=== PATIENT | female | born 1970 | race Caucasian/White ===

== ENCOUNTER 2019-05-18 09:06 | Inpatient (IN) | payer OTHER ==
[2019-05-18 11:16] VITALS: BMI 28.7
--- NOTE | 2019-05-18 11:25 | HP ---
CIWA Score Nausea/Vomitin-No Nausea/No Vomiting Muscle Tremors: 4-Moderate,w/Arms Extend Anxiety: 3 Agitation: 4-Moderately Restless Paroxysmal Sweats: No Perspiration Orientation: 2-Disoriented Date<2 days Tacttile Disturbances: 0-None Auditory Disturbances: 2-Mild Harshness/Frighten Visual Disturbances: 2-Mild Sensitivity Headache: 0-None Present CIWA-Ar Total Score: 17 - Admission Criteria OASAS Guidelines: Admission for Medically Managed Detox: Requires at least one of the followin. CIWA greater than 12 2. Seizures within the past 24 hours 3. Delirium tremens within the past 24 hours 4. Hallucinations within the past 24 hours 5. Acute intervention needed for co occurring medical disorder 6. Acute intervention needed for co occurring psychiatric disorder 7. Severe withdrawal that cannot be handled at a lower level of care (continued vomiting, continued diarrhea, abnormal vital signs) requiring intravenous medication and/or fluids 8. Admitting History and Physical - Past Medical History ...LMP: 10/14/15 - Smoking History Smoking history: Former smoker Have you smoked in the past 12 months: No If you are a former smoker, when did you quit?: 5 YRS. AGO - Alcohol/Substance Use Hx Alcohol Use: Yes Admission [facility] Allergies/Adverse Reactions: Allergies Allergy/AdvReac Type Severity Reaction Status Date / Time No Known Allergies Allergy Verified 05/18/19 10:51 History of Present Illness: pt here requesting detox from etoh use reports 1 liter and 6-pk beer and 1 bottle of wine /day , reports h/o pancreatitis , latest use today . PMHX : DM I , HIV non- compliant w/ meds " I have boxes and boxes of meds in my house , I pick them up but I never take them " , HTN , PSHx : cholecystitis , left [facility] 3 yrs ago [facility] 2/2 fall/ frx adult children in [place] finances habit through selling benefit card per pharmacy of record, no rx for Lisinopril Exam Limitations: Clinical Condition, Intoxication - Ebola screening Have you traveled outside of the country in the last 21 days: No (NN) Have you had contact with anyone from an Ebola affected area: No - Review of Systems Constitutional: Loss of Appetite EENT: reports: Other (glasses) Respiratory: reports: No Symptoms reported Cardiac: reports: No Symptoms Reported GI: reports: Diarrhea, Poor Appetite : reports: No Symptoms Reported Musculoskeletal: reports: Joint Pain (left hip pain , went to [facility] 4 d. ago , given Naprosyn) Integumentary: reports: Bruising (s/p fall - right elbow) Neuro: reports: See HPI, Seizure, Tremors, Unsteady Gait Endocrine: reports: See HPI Psychiatric: reports: Agitated, Anxious, Disorientated Patient History - Patient Medical History Hx Anemia: Yes (NO SURE) Hx Asthma: No Hx Chronic Obstructive Pulmonary Disease (COPD): No Hx Cancer: No Hx Cardiac Disorders: No Hx Congestive Heart Failure: No Hx Hypertension: Yes Hx Hypercholesterolemia: No Hx Pacemaker: No HX Cerebrovascular Accident: No Hx Seizures: Yes (03/2015) Hx Dementia: No Hx Diabetes: Yes (VPS=920,SINCE 07/2014) Hx Gastrointestinal Disorders: No Hx Liver Disease: No Hx Genitourinary Disorders: No Hx Sexually Transmitted Disorders: No Hx Renal Disease (ESRD): No Hx Thyroid Disease: No Hx Human Immunodeficiency Virus (HIV): Yes (COMPLERA NON-COMPLIANT X 4 MONTHS) Hx Hepatitis C: No Hx Depression: Yes Hx Suicide Attempt: Yes (LAY ON TRAIN TRACK WHILE DRUNK) Hx Bipolar Disorder: Yes Hx Schizophrenia: No - Patient Surgical History Past Surgical History: Yes Hx Cholecystectomy: Yes (JUNE 2015) Other Surgical History: gallbladder surgery , removed 3 stones 06/2015 Anesthesia Reaction: No - PPD History Date: 11/17/15 - Reproductive History Last Menstrual Period: 10/14/15 - Smoking Cessation Smoking history: Former smoker Have you smoked in the past 12 months: No If you are a former smoker, when did you quit?: 5 YRS. AGO Hx Chewing Tobacco Use: No Initiated information on smoking cessation: No - Substances abused Alcohol Substance route: Oral Frequency: Daily Amount used: 1 liter of vodka & 5 beers Age of first use: 8 Date of last use: 05/17/19 Admission Physical Exam BHS - Vital Signs Vital Signs: Vital Signs - 24 hr 05/18/19 11:02 Temperature 97.3 F L Pulse Rate 126 H Respiratory 20 Rate Blood Pressure 143/86 - Physical General Appearance: Yes: Disheveled, Intoxicated HEENTM: Yes: EOMI, Hearing grossly Normal, Normocephalic, Normal Voice Respiratory: Yes: Chest Non-Tender, Lungs Clear, Normal Breath Sounds, No Respiratory Distress, No Accessory Muscle Use Neck: Yes: No masses,lesions,Nodules, Trachea in good position Cardiology: Yes: Regular Rhythm, Regular Rate, S1, S2, Tachycardia Abdominal: Yes: Non Tender, Soft, Protuberent Musculoskeletal: Yes: full range of Motion Extremities: Yes: Normal Range of Motion, Non-Tender, Tremors Neurological: Yes: Alert, Motor Strength 5/5, Disoriented Integumentary: Yes: Warm, Other (bruising rigth elbow) - Diagnostic (1) Alcohol intoxication Current Visit: Yes Status: Acute Qualifiers: Complication of substance-induced condition: uncomplicated Qualified Code(s ): F10.920 - Alcohol use, unspecified with intoxication, uncomplicated Inpatient Rehab Admission - Rehab Decision to Admit Inpatient rehab admission?: No
[2019-05-18] MEDS ORDERED: METOPROLOL TARTRATE 25 MG TABLET (FP) PO ONE (11:40)
[2019-05-18] MEDS ORDERED: ACETAMINOPHEN 325 MG TABLET (FP) PO PRN ×2 (11:48)
[2019-05-18] MEDS ORDERED: IBUPROFEN 400 MG TABLET (FP) PO PRN (11:48)
[2019-05-18] MEDS ORDERED: hydrOXYzine PAMOATE 25 MG CAPSULE (FP) PO PRN (11:48)
[2019-05-18] MEDS ORDERED: MAGNESIUM CITRATE 300 ML BOTTLE PO PRN (11:48)
[2019-05-18] MEDS ORDERED: MELATONIN 5 MG TABLETS PO PRN (11:48)
[2019-05-18] MEDS ORDERED: MENTHOL/PHENOL 1 EACH UD MM PRN (11:48)
[2019-05-18] MEDS ORDERED: MAGNESIUM HYDROX 2400MG/30ML ORAL SUSPENSION 30 ML CUP PO PRN (11:48)
[2019-05-18] MEDS ORDERED: MAG HYDROX/AL HYDROX/SIMETH 30 ML UNIT-DOSE CUP PO PRN (11:48)
[2019-05-18] MEDS ORDERED: chlordiazePOXIDE HCL 25 MG CAPSULE PO PRN (11:48)
[2019-05-18] MEDS ORDERED: BISMUTH SUBSALICYLATE 524 MG/30 ML UD PO PRN (11:48)
[2019-05-18] MEDS: chlordiazePOXIDE HCL 25 MG CAPSULE PO SCH ×3 (13:38→22:30)
[2019-05-18] MEDS: INSULIN SLIDING SCALE (NOVOLOG) 1 VIAL SQ SCH ×2 (17:25→23:11)
[2019-05-18] MEDS: THIAMINE HCL 100 MG TABLET (FP) PO SCH (21:35)
[2019-05-18] MEDS: PATIENT'S OWN MEDICATION (NON-FORMULARY) (Insulin Glargine,Hum.Rec.Anlog [Basaglar Kwikpen SQ SCH (21:36)
[2019-05-19] MEDS: chlordiazePOXIDE HCL 25 MG CAPSULE PO SCH ×4 (06:47→22:01)
[2019-05-19] MEDS ORDERED: INSULIN SLIDING SCALE (NOVOLOG) 1 VIAL SQ ONE ×2 (06:51→09:51)
[2019-05-19] MEDS: INSULIN SLIDING SCALE (NOVOLOG) 1 VIAL SQ SCH ×4 (06:54→22:01)
[2019-05-19] MEDS: PRENATAL VITAMINS W/ FOLIC ACID TABLET (FP) PO SCH (10:22)
[2019-05-19 10:41] LABS: HEMATOCRIT 42.8 % (32.4-45.2); HEMOGLOBIN 14.3 GM/dL (10.7-15.3); MCH 31.2 pg (25.7-33.7); MCHC 33.4 g/dl (32.0-36.0); MEAN CELL VOLUME 93.5 fl (80-96); MEAN PLT VOLUME 9.6 fl (7.5-11.1); PLATELET COUNT 124 K/MM3 (134-434); RBC 4.58 M/mm3 (3.60-5.2); RDW 12.8 % (11.6-15.6); WHITE BLOOD COUNT 3.2 K/mm3 (4.0-10.0)
[2019-05-19 10:55] LABS: ALBUMIN 3.8 g/dl (3.4-5.0); BILIRUBIN,TOTAL 3.2 mg/dL (0.2-1); BLOOD UREA NITROGEN 12.8 mg/dL (7-18); CALCIUM 8.5 mg/dL (8.5-10.1); CREATININE 0.8 mg/dL (0.55-1.3); POTASSIUM 3.5 mmol/L (3.5-5.1); TOT PROT 8.1 g/dl (6.4-8.2)
--- NOTE | 2019-05-19 14:43 | PN ---
S CIWA - CIWA Score Nausea/Vomitin-No Nausea/No Vomiting Muscle Tremors: 3 Anxiety: 3 Agitation: 3 Paroxysmal Sweats: 3 Orientation: 0-Oriented Tacttile Disturbances: 0-None Auditory Disturbances: 0-None Visual Disturbances: 0-None Headache: 0-None Present CIWA-Ar Total Score: 12 BHS Progress Note (SOAP) Subjective: sweats interrupted sleep agitation body aches Objective: 05/19/19 14:42 Vital Signs Temperature 98.2 F 05/19/19 14:25 Pulse Rate 97 H 05/19/19 14:25 Respiratory Rate 18 05/19/19 14:25 Blood Pressure 153/95 05/19/19 14:25 O2 Sat by Pulse Oximetry (%) Laboratory Tests 05/18/19 05/18/19 05/18/19 12:24 16:27 21:10 WBC RBC Hgb Hct MCV MCH MCHC RDW Plt Count MPV Sodium Potassium Chloride Carbon Dioxide Anion Gap BUN Creatinine Est GFR (CKD-EPI)AfAm Est GFR (CKD-EPI)NonAf POC Glucometer [phone] Random Glucose Calcium Total Bilirubin AST ALT Alkaline Phosphatase Total Protein Albumin RPR Titer 05/19/19 05/19/19 05/19/19 06:46 07:20 07:20 WBC 3.2 L RBC 4.58 Hgb 14.3 Hct 42.8 D MCV 93.5 MCH 31.2 D MCHC 33.4 RDW 12.8 D Plt Count 124 L D MPV 9.6 Sodium 135 L Potassium 3.5 Chloride 98 Carbon Dioxide 29 Anion Gap 9 BUN 12.8 Creatinine 0.8 Est GFR (CKD-EPI)AfAm 100.33 Est GFR (CKD-EPI)NonAf 86.57 POC Glucometer 232 Random Glucose 263 H Calcium 8.5 Total Bilirubin 3.2 H AST 60 H ALT 33 Alkaline Phosphatase 105 Total Protein 8.1 Albumin 3.8 RPR Titer 05/19/19 05/19/19 07:20 11:23 WBC RBC Hgb Hct MCV MCH MCHC RDW Plt Count MPV Sodium Potassium Chloride Carbon Dioxide Anion Gap BUN Creatinine Est GFR (CKD-EPI)AfAm Est GFR (CKD-EPI)NonAf POC Glucometer 345 Random Glucose Calcium Total Bilirubin AST ALT Alkaline Phosphatase Total Protein Albumin RPR Titer Nonreactive aaox3 ambulating no acute distress Assessment: 05/19/19 14:43 withdrawals Plan: continue detox melatonin 10mg qhs
[2019-05-19] MEDS ORDERED: MELATONIN 5 MG TABLETS PO PRN (14:44)
[2019-05-19] MEDS: THIAMINE HCL 100 MG TABLET (FP) PO SCH (22:01)
[2019-05-19] MEDS: PATIENT'S OWN MEDICATION (NON-FORMULARY) (Insulin Glargine,Hum.Rec.Anlog [Basaglar Kwikpen SQ SCH (22:01)
[2019-05-20 07:01] VITALS: TEMP 97.9
[2019-05-20] MEDS: chlordiazePOXIDE HCL 25 MG CAPSULE PO SCH ×2 (07:12→10:17)
[2019-05-20] MEDS: INSULIN SLIDING SCALE (NOVOLOG) 1 VIAL SQ SCH (08:20)
[2019-05-20] MEDS: PRENATAL VITAMINS W/ FOLIC ACID TABLET (FP) PO SCH (10:18)
--- NOTE | 2019-05-20 10:38 | PN ---
S CIWA - CIWA Score Nausea/Vomitin-No Nausea/No Vomiting Muscle Tremors: 3 Anxiety: 2 Agitation: 3 Paroxysmal Sweats: 2 Orientation: 0-Oriented Tacttile Disturbances: 0-None Auditory Disturbances: 0-None Visual Disturbances: 0-None Headache: 0-None Present CIWA-Ar Total Score: 10 BHS Progress Note (SOAP) Subjective: sweats slept better anxiety Objective: 05/20/19 10:36 Vital Signs Temperature 97.9 F 05/20/19 07:00 Pulse Rate 87 05/20/19 07:00 Respiratory Rate 16 05/20/19 07:00 Blood Pressure 139/90 05/20/19 07:00 O2 Sat by Pulse Oximetry (%) Laboratory Tests 05/18/19 05/18/19 05/18/19 12:24 16:27 21:10 WBC RBC Hgb Hct MCV MCH MCHC RDW Plt Count MPV Sodium Potassium Chloride Carbon Dioxide Anion Gap BUN Creatinine Est GFR (CKD-EPI)AfAm Est GFR (CKD-EPI)NonAf POC Glucometer 234 259 196 Random Glucose Calcium Total Bilirubin AST ALT Alkaline Phosphatase Total Protein Albumin RPR Titer 05/19/19 05/19/19 05/19/19 06:46 07:20 07:20 WBC 3.2 L RBC 4.58 Hgb 14.3 Hct 42.8 D MCV 93.5 MCH 31.2 D MCHC 33.4 RDW 12.8 D Plt Count 124 L D MPV 9.6 Sodium 135 L Potassium 3.5 Chloride 98 Carbon Dioxide 29 Anion Gap 9 BUN 12.8 Creatinine 0.8 Est GFR (CKD-EPI)AfAm 100.33 Est GFR (CKD-EPI)NonAf 86.57 POC Glucometer 232 Random Glucose 263 H Calcium 8.5 Total Bilirubin 3.2 H AST 60 H ALT 33 Alkaline Phosphatase 105 Total Protein 8.1 Albumin 3.8 RPR Titer 05/19/19 05/19/19 05/19/19 07:20 11:23 16:24 WBC RBC Hgb Hct MCV MCH MCHC RDW Plt Count MPV Sodium Potassium Chloride Carbon Dioxide Anion Gap BUN Creatinine Est GFR (CKD-EPI)AfAm Est GFR (CKD-EPI)NonAf POC Glucometer 345 446 Random Glucose Calcium Total Bilirubin AST ALT Alkaline Phosphatase Total Protein Albumin RPR Titer Nonreactive 05/19/19 05/19/19 05/20/19 18:40 21:43 07:10 WBC RBC Hgb Hct MCV MCH MCHC RDW Plt Count MPV Sodium Potassium Chloride Carbon Dioxide Anion Gap BUN Creatinine Est GFR (CKD-EPI)AfAm Est GFR (CKD-EPI)NonAf POC Glucometer 299 298 260 Random Glucose Calcium Total Bilirubin AST ALT Alkaline Phosphatase Total Protein Albumin RPR Titer aaox3 ambulating no acute distress Assessment: 05/20/19 10:38 withdrawals Plan: continue detox increase fluids
--- NOTE | 2019-05-20 11:34 | PN ---
S Progress Note Note: pt states she wants to leave. Pt was advised to stay to complete her detox and prevent relapse, seizure, DTs, OD and or loss; pt chose to sign out AMA.
--- NOTE | 2019-05-20 11:35 | DS ---
[facility] Detox Discharge Summary Admission Date: 05/18/19 - History Present History: Alcohol Dependence - Physical Exam Results Vital Signs: Vital Signs Temperature 97.9 F 05/20/19 07:00 Pulse Rate 87 05/20/19 07:00 Respiratory Rate 16 05/20/19 07:00 Blood Pressure 139/90 05/20/19 07:00 O2 Sat by Pulse Oximetry (%) Pertinent Admission Physical Exam Findings: Vital Signs Temperature 97.9 F 05/20/19 07:00 Pulse Rate 87 05/20/19 07:00 Respiratory Rate 16 05/20/19 07:00 Blood Pressure 139/90 05/20/19 07:00 O2 Sat by Pulse Oximetry (%) Laboratory Tests 05/18/19 05/18/19 05/18/19 11:22 12:24 16:27 WBC RBC Hgb Hct MCV MCH MCHC RDW Plt Count MPV Sodium Potassium Chloride Carbon Dioxide Anion Gap BUN Creatinine Est GFR (CKD-EPI)AfAm Est GFR (CKD-EPI)NonAf POC Glucometer 234 259 Random Glucose Calcium Total Bilirubin AST ALT Alkaline Phosphatase Total Protein Albumin POC Urine HCG, Qual Negative RPR Titer 05/18/19 05/19/19 05/19/19 21:10 06:46 07:20 WBC 3.2 L RBC 4.58 Hgb 14.3 Hct 42.8 D MCV 93.5 MCH 31.2 D MCHC 33.4 RDW 12.8 D Plt Count 124 L D MPV 9.6 Sodium Potassium Chloride Carbon Dioxide Anion Gap BUN Creatinine Est GFR (CKD-EPI)AfAm Est GFR (CKD-EPI)NonAf POC Glucometer 196 232 Random Glucose Calcium Total Bilirubin AST ALT Alkaline Phosphatase Total Protein Albumin POC Urine HCG, Qual RPR Titer 05/19/19 05/19/19 05/19/19 07:20 07:20 11:23 WBC RBC Hgb Hct MCV MCH MCHC RDW Plt Count MPV Sodium 135 L Potassium 3.5 Chloride 98 Carbon Dioxide 29 Anion Gap 9 BUN 12.8 Creatinine 0.8 Est GFR (CKD-EPI)AfAm 100.33 Est GFR (CKD-EPI)NonAf 86.57 POC Glucometer 345 Random Glucose 263 H Calcium 8.5 Total Bilirubin 3.2 H AST 60 H ALT 33 Alkaline Phosphatase 105 Total Protein 8.1 Albumin 3.8 POC Urine HCG, Qual RPR Titer Nonreactive 05/19/19 05/19/19 05/19/19 16:24 18:40 21:43 WBC RBC Hgb Hct MCV MCH MCHC RDW Plt Count MPV Sodium Potassium Chloride Carbon Dioxide Anion Gap BUN Creatinine Est GFR (CKD-EPI)AfAm Est GFR (CKD-EPI)NonAf POC Glucometer 446 299 298 Random Glucose Calcium Total Bilirubin AST ALT Alkaline Phosphatase Total Protein Albumin POC Urine HCG, Qual RPR Titer 05/20/19 07:10 WBC RBC Hgb Hct MCV MCH MCHC RDW Plt Count MPV Sodium Potassium Chloride Carbon Dioxide Anion Gap BUN Creatinine Est GFR (CKD-EPI)AfAm Est GFR (CKD-EPI)NonAf POC Glucometer 260 Random Glucose Calcium Total Bilirubin AST ALT Alkaline Phosphatase Total Protein Albumin POC Urine HCG, Qual RPR Titer aaox3 ambulating no acute distress - Treatment Hospital Course: Rehab Referral Accepted - Medication Discharge Medications: Ambulatory Orders Lisinopril [Prinivil] 20 mg PO BID 11/15/15 Emtricitab/Rilpiviri/Tenof Ala [Odefsey Tablet] 1 each PO DAILY 05/18/19 Insulin Glargine,Hum.rec.anlog [Basaglar Kwikpen U-100] 10 unit SQ HS 05/18/19 - Diagnosis (1) Alcohol intoxication Current Visit: Yes Status: Acute Qualifiers: Complication of substance-induced condition: uncomplicated Qualified Code(s ): F10.920 - Alcohol use, unspecified with intoxication, uncomplicated (2) Drug-induced mood disorder Current Visit: No Status: Acute (3) Alcohol dependence with uncomplicated withdrawal Current Visit: No Status: Chronic (4) HIV (human immunodeficiency virus infection) Current Visit: No Status: Chronic (5) HTN (hypertension) Current Visit: No Status: Chronic (6) Nicotine dependence in remission Current Visit: No Status: Chronic (7) Type II diabetes mellitus Current Visit: No Status: Chronic Qualifiers: Diabetes mellitus long chain beamer insulin use: without intermediate use Diabetes mellitus complication status: without complication Qualified Code(s): E11.9 - Type 2 diabetes mellitus without complications - AMA Did Patient Leave Against Medical Advice: Yes
[2019-05-20 12:15] VITALS: BP 142/90; PULSE 76
[2019-05-21] MEDS ORDERED: chlordiazePOXIDE HCL 10 MG CAPSULE PO PRN
[2019-05-21] MEDS ORDERED: chlordiazePOXIDE HCL 10 MG CAPSULE PO SCH (05:00)
[2019-05-22] MEDS ORDERED: chlordiazePOXIDE HCL 10 MG CAPSULE PO SCH (05:00)
[2019-05-23] MEDS ORDERED: chlordiazePOXIDE HCL 10 MG CAPSULE PO ONE (05:00)
== END 2019-05-20 12:00 | disposition left against medical advice (07) | DRG 770 ==
LOC: YASAS 09:06 → Y6N 12:05
PROVIDERS: ADMIT Allergy & Immunology; ATTEND Allergy & Immunology
PROC: HZ2ZZZZ Detoxification Services for Substance Abuse Treatment (ICD-10-PCS; principal; 2019-05-18)
DX: F10.230 Alcohol dependence with withdrawal, uncomplicated (principal); F10.220 Alcohol dependence with intoxication, uncomplicated; F19.24 Other psychoactive substance dependence with psychoactive substance-induced mood disorder; I10 Essential (primary) hypertension; Z21 Asymptomatic human immunodeficiency virus [HIV] infection status; E11.9 Type 2 diabetes mellitus without complications; R00.0 Tachycardia, unspecified; Z79.4 Long term (current) use of insulin; Z87.891 Personal history of nicotine dependence; Z91.14 Patient's other noncompliance with medication regimen; Z86.69 Personal history of other diseases of the nervous system and sense organs; Z91.5 Personal history of self-harm
CPT/HCPCS: 36415; 80053; 81025; 82962; 85027; 86593

== ENCOUNTER 2021-04-29 16:43 | Inpatient (IN) | payer OTHER ==
[2021-04-29 17:53] VITALS: BMI 28.2
[2021-04-29] MEDS ORDERED: ALBUTEROL SO4 HFA INHALER IH PRN (18:56)
[2021-04-29] MEDS ORDERED: ACETAMINOPHEN 325 MG TABLET (FP) PO PRN ×2 (18:57)
[2021-04-29] MEDS ORDERED: hydrOXYzine PAMOATE 25 MG CAPSULE (FP) PO PRN (18:57)
[2021-04-29] MEDS ORDERED: MAGNESIUM CITRATE 300 ML BOTTLE PO PRN (18:57)
[2021-04-29] MEDS ORDERED: MAG HYDROX/AL HYDROX/SIMETH 30 ML UNIT-DOSE CUP PO PRN (18:57)
[2021-04-29] MEDS ORDERED: MENTHOL/PHENOL 1 EACH UD MM PRN (18:57)
[2021-04-29] MEDS ORDERED: BISMUTH SUBSALICYLATE 524 MG/30 ML PO PRN (18:57)
[2021-04-29] MEDS ORDERED: ONDANSETRON *ODT* 4 MG TABLET SL PRN (18:57)
[2021-04-29] MEDS ORDERED: IBUPROFEN 400 MG TABLET (FP) PO PRN (18:57)
[2021-04-29] MEDS ORDERED: MAGNESIUM HYDROX 2400MG/30ML ORAL SUSPENSION 30 ML CUP PO PRN (18:57)
[2021-04-29] MEDS ORDERED: METHOCARBAMOL 500 MG TABLET PO PRN (18:57)
[2021-04-29] MEDS ORDERED: diazePAM 5 MG TABLET PO PRN (18:59)
[2021-04-29] MEDS ORDERED: MELATONIN 5 MG TABLETS PO SCH (22:00)
[2021-04-29] MEDS ORDERED: THIAMINE HCL 100 MG TABLET (FP) PO SCH (22:00)
[2021-04-30 07:04] VITALS: BP 153/82; PULSE 97; TEMP 97.8
[2021-04-30] MEDS ORDERED: PRENATAL VITAMINS W/ FOLIC ACID TABLET (FP) PO SCH (10:00)
[2021-04-30] MEDS ORDERED: LISINOPRIL 20 MG TABLET PO SCH (10:00)
[2021-04-30] MEDS ORDERED: EMTRICITAB/RILPIVIRI/TENOF ALA (ODEFSEY) TABLET PO SCH (10:00)
[2021-04-30] MEDS ORDERED: INSULIN SLIDING SCALE (NOVOLOG) 1 VIAL SQ SCH (11:00)
[2021-04-30 12:15] LABS: ALBUMIN 3.8 g/dl (3.4-5.0); BLOOD UREA NITROGEN 12.6 mg/dL (7-18); CALCIUM 9.5 mg/dL (8.5-10.1)
[2021-04-30 12:18] LABS: HEMATOCRIT 39.1 % (32.4-45.2); HEMOGLOBIN 11.5 GM/dL (10.7-15.3); MCH 22.1 pg (25.7-33.7); MCHC 29.3 g/dl (32.0-36.0); MEAN CELL VOLUME 75.3 fl (80-96); MEAN PLT VOLUME 9.4 fl (7.5-11.1); PLATELET COUNT 157 10^3/uL (134-434); RBC 5.19 M/mm3 (3.60-5.2); RDW 29.2 % (11.6-15.6); WHITE BLOOD COUNT 3.1 K/mm3 (4.0-10.0)
[2021-04-30 12:19] LABS: CREATININE 0.6 mg/dL (0.55-1.3)
[2021-04-30 12:21] LABS: BILIRUBIN,TOTAL 0.8 mg/dL (0.2-1)
[2021-04-30] MEDS ORDERED: INSULIN (LEVEMIR) 100 UNITS/ML UNITS SQ SCH (22:00)
== END 2021-04-30 10:32 | disposition left against medical advice (07) | DRG 770 ==
LOC: YASAS 16:43 → Y6N 20:29
PROVIDERS: ADMIT Allergy & Immunology; ATTEND Allergy & Immunology
PROC: HZ2ZZZZ Detoxification Services for Substance Abuse Treatment (ICD-10-PCS; principal; 2021-04-29)
DX: F10.230 Alcohol dependence with withdrawal, uncomplicated (principal); F10.220 Alcohol dependence with intoxication, uncomplicated; Z21 Asymptomatic human immunodeficiency virus [HIV] infection status; I10 Essential (primary) hypertension; E11.9 Type 2 diabetes mellitus without complications; Z79.4 Long term (current) use of insulin; Z87.891 Personal history of nicotine dependence; Z87.19 Personal history of other diseases of the digestive system; Z87.442 Personal history of urinary calculi; Z86.19 Personal history of other infectious and parasitic diseases
CPT/HCPCS: 36415; 80053; 81025; 85027; 86780; C9803; U0003; U0005